=== PATIENT | male | born 1965 | race American Indian/Alaskan Native ===

== ENCOUNTER 2016-08-19 10:47 | Emergency (ER) | payer MEDICARE ==
--- NOTE | 2016-08-19 12:22 | Emergency Department Report ---
HPI - General Chief Complaint: Back Pain/Injury Time Seen by Provider: 08/19/16 11:48 - HPI HPI: Patient is a 51-year-old male presents to ED complaining of Left sided lower back pain x 4 days. Patient denies any injury to his back. He describes pain as throbbing, aching, localized to his lower left back. Patient rates pain 6/10 in intensity. Patient states pain is worsened with certain movement such as bending. Patient has full range of motion of the back. He denies rectal pain, testicular pain He denies fevers/chills/nausea/vomiting/abdominal pain/trauma or injury to the back/chest pain/shortness of breath/blurred vision or any other problems ED Past Medical Hx - Past Medical History Previous Medical History?: No - Surgical History Past Surgical History?: Yes Additional Surgical History: Left Leg. Jaw - Social History Smoking Status: Current Every Day Smoker Substance Use Type: Alcohol - Medications Home Medications: Home Medications Medication Instructions Recorded Confirmed Last Taken Type methylPREDNISolone [Medrol] 4 mg PO QAM #1 dosepack 12/18/15 Unknown Rx traMADol [Ultram] 50 mg PO Q6HR PRN #20 tablet 12/18/15 Unknown Rx Cyclobenzaprine [Flexeril] 10 mg PO QHS PRN #20 tablet 08/19/16 Unknown Rx Naproxen [Naprosyn] 500 mg PO BID #30 tablet 08/19/16 Unknown Rx predniSONE [Deltasone] 10 mg PO QDAY #4 tab 08/19/16 Unknown Rx ED Review of Systems ROS: Stated complaint: BACK PAIN Other details as noted in HPI Constitutional: denies: chills, fever Eyes: denies: eye pain, eye discharge, vision change ENT: denies: ear pain, throat pain Respiratory: denies: cough, shortness of breath, wheezing Cardiovascular: denies: chest pain, palpitations Endocrine: no symptoms reported Gastrointestinal: denies: abdominal pain, nausea, diarrhea Genitourinary: denies: urgency, dysuria Musculoskeletal: denies: back pain, joint swelling, arthralgia Skin: denies: rash, lesions Neurological: denies: headache, weakness, paresthesias Psychiatric: denies: anxiety, depression Hematological/Lymphatic: denies: easy bleeding, easy bruising Physical Exam - Physical Exam Vital Signs: Vital Signs 08/19/16 11:28 Temperature 98.7 F Pulse Rate 90 Respiratory 18 Rate Blood Pressure 118/74 O2 Sat by Pulse 99 Oximetry Physical Exam: GENERAL: Alert and oriented x3, no apparent distress, Normal Gait, atraumatic. HEAD: Head is normocephalic and a-traumatic. EYES: Extra ocular muscles are intact. Pupils are equal, round, and reactive to light and accommodation. NECK: Supple. Non edematous, No carotid bruits. No lymphadenopathy or thyromegaly. No C-spine tenderness LUNGS: Symetrical with respiration, No wheezing, no rales or crackles, CTAB. HEART: S1, S2 present, regular rate and rhythm without murmur, no rubs, no gallops. EXTREMITIES/MUSCULOSKELETAL: No cyanosis, clubbing, rash, lesions or edema. Full ROM bilaterally. UE/LE Pulses 2+ bilaterally. LE and UE 5+ strength bilaterally, straight leg raise positive to left. NEUROLOGIC: The patient is cooperative with no focal neurologic deficits. Cranial nerves II through XII are grossly intact. Normal speech. SKIN: Warm and dry, No lesions, No ulceration or induration present. ED Course Vital Signs 08/19/16 11:28 Temperature 98.7 F Pulse Rate 90 Respiratory 18 Rate Blood Pressure 118/74 O2 Sat by Pulse 99 Oximetry ED Medical Decision Making - Medical Decision Making 51-year-old male presents with lumbar radiculopathy. ED course: Patient is in no distress during ED stay during examination, normal exam he states he can wait that he gets home to take medication since he is driving home. Discussed with patient. Rest , heat therapy to his lower back to take medication as prescribed. Discussed the patient to follow up with primary care doctor/chiropractor/ neurology as all referred. Patient was alert and oriented 3 understands instructions given and states he will follow-up. Vital signs are normal patient is in no acute distress Critical care attestation.: If time is entered above; I have spent that time in minutes in the direct care of this critically ill patient, excluding procedure time. ED Disposition Clinical Impression: Lumbar radiculopathy Disposition: DISCHARGED TO HOME OR SELFCARE Is pt being admited?: No Does the pt Need Aspirin: No Condition: Stable Instructions: Low Back Strain (ED), Lumbar Radiculopathy (ED), Core Strengthening Exercises (GEN), Heat Pack Application (ED) Prescriptions: Cyclobenzaprine [Flexeril] 10 mg PO QHS PRN #20 tablet PRN Reason: Muscle Spasm Naproxen [Naprosyn] 500 mg PO BID #30 tablet predniSONE [Deltasone] 10 mg PO QDAY #4 tab Referrals: CHANDLER BROWN MD [Staff Physician] - 3-5 Days [facility] [Outside] - 3-5 Days [facility] [Outside] - 3-5 Days [facility] [Outside] - 3-5 Days Forms: Work/School Release Form Time of Disposition: 12:22
[2016-08-19 13:11] VITALS: BP 132/76
== END 2016-08-19 12:55 | disposition home or self-care (01) ==
LOC: ED 10:47
DX: M54.16 Radiculopathy, lumbar region (principal); F17.200 Nicotine dependence, unspecified, uncomplicated
CPT/HCPCS: 99282

== ENCOUNTER 2016-10-14 11:51 | Emergency (ER) | payer MEDICARE ==
[2016-10-14 12:17] LABS: Basophils % (Auto) 0.7 % (0.0-1.8); Eosinophils % (Auto) 2.3 % (0.0-4.3); Hematocrit 42.4 % (35.5-45.6); Hemoglobin 14.3 gm/dl (11.8-15.2); Mean Corpuscular HGB Conc 34 % (32-34); Mean Corpuscular Hemoglobin 32 pg (28-32); Mean Corpuscular Volume 95 fl (84-94); Platelet Count 316 K/mm3 (140-440); Red Blood Count 4.47 M/mm3 (3.65-5.03); Red Cell Distribution Width 13.9 % (13.2-15.2); White Blood Count 8.8 K/mm3 (4.5-11.0)
[2016-10-14 12:31] LABS: Anion Gap 17 mmol/L; BUN/Creatinine Ratio 11.42; Blood Urea Nitrogen 8 mg/dL (9-20); Carbon Dioxide 23 mmol/L (22-30); Chloride 98.1 mmol/L (98-107); Glucose 112 mg/dL (75-100); Potassium 4.1 mmol/L (3.6-5.0); Sodium 134 mmol/L (137-145)
--- NOTE | 2016-10-14 12:58 | Ultrasound Report ---
ULTRASOUND TESTICULAR DOPPLER COMPLETE History: Right testicular swelling. Technique: Trans-scrotal ultrasound with spectral doppler interrogation. Findings: The right epididymal tail is enlarged, heterogeneous and demonstrates increased blood flow on color Doppler interrogation consistent with acute epididymitis. There is a small to medium right hydrocele. The testes and left epididymis are within normal limits. Spectral waveforms demonstrate arterial flow to both testes. IMPRESSION: Findings consistent with right epididymitis.
[2016-10-14 13:58] VITALS: BP 125/73
[2016-10-14] MEDS ORDERED: MOTRIN PO ONE (13:59)
[2016-10-14] MEDS ORDERED: NORCO 5/325 PO ONE (13:59)
--- NOTE | 2016-10-14 14:00 | Emergency Department Report ---
HPI - General Chief Complaint: Urogenital-Male Time Seen by Provider: 10/14/16 12:48 - HPI HPI: Room 26 The patient is a 51-year-old male presenting with a chief complaint testicular pain. The patient states 4 days he's had a pulling pain in the right testicle. Patient states the pain is constant and associated with subjective fever. Patient denies dysuria states she is uncertain of his had hematuria. Patient denies penile discharge. The patient currently gives his pain a score of 5/10 Location: Right testicle Duration: 4 days Quality: "Pulling" Severity: 5/10 Modifying factors: [see above] Context: [see above] Mode of transportation: [not driving] ED Past Medical Hx - Past Medical History Previous Medical History?: No - Surgical History Past Surgical History?: Yes Additional Surgical History: Left Leg. Jaw - Family History Family history: no significant - Social History Smoking Status: Current Every Day Smoker (1 pack per day) Substance Use Type: Alcohol, Cocaine - Medications Home Medications: Home Medications Medication Instructions Recorded Confirmed Last Taken Type Ciprofloxacin HCl [Ciprofloxacin 500 mg PO BID #20 tablet 10/14/16 Unknown Rx TAB] HYDROcodone/APAP 5-325 [[place] 1 - 2 each PO Q6HR PRN #14 tablet 10/14/16 Unknown Rx 5/325] Ibuprofen [Motrin 800 MG tab] 800 mg PO Q8HR PRN #20 tablet 10/14/16 Unknown Rx ED Review of Systems ROS: Stated complaint: SWOLLEN TESTICLE R SIDE ONLY Other details as noted in HPI Comment: All other systems reviewed and negative Constitutional: diaphoresis Eyes: denies: eye pain, eye discharge, vision change ENT: denies: ear pain, throat pain Respiratory: denies: cough, shortness of breath, wheezing Cardiovascular: denies: chest pain, palpitations Endocrine: no symptoms reported Gastrointestinal: denies: abdominal pain, nausea, diarrhea Genitourinary: testicular pain. denies: dysuria, frequency, discharge Musculoskeletal: denies: back pain, joint swelling, arthralgia Skin: denies: rash, lesions Neurological: denies: headache, weakness, paresthesias Psychiatric: denies: anxiety, depression Hematological/Lymphatic: denies: easy bleeding, easy bruising Physical Exam - Physical Exam Vital Signs: Vital Signs 10/14/16 10/14/16 11:56 13:50 Temperature 99.0 F Pulse Rate 91 H Respiratory 20 18 Rate Blood Pressure 137/86 O2 Sat by Pulse 100 100 Oximetry Physical Exam: GENERAL: The patient is well-developed well-nourished male lying on stretcher not appearing to be in acute distress. [] HEENT: Normocephalic. Atraumatic. Extraocular motions are intact. Patient has moist mucous membranes. NECK: Supple. Trachea midline CHEST/LUNGS: There is no respiratory distress noted. HEART/CARDIOVASCULAR: Regular. There is no tachycardia. ABDOMEN: Abdomen is soft, nontender. Patient has normal bowel sounds. There is no abdominal distention. SKIN: There is no rash. There is no edema. There is no diaphoresis. NEURO: The patient is awake, alert, and oriented. The patient is cooperative. The patient has normal speech MUSCULOSKELETAL: There is no evidence of acute injury. GENITOURINARY: Tenderness and swelling of the right testicle. ED Course Vital Signs 10/14/16 10/14/16 11:56 13:50 Temperature 99.0 F Pulse Rate 91 H Respiratory 20 18 Rate Blood Pressure 137/86 O2 Sat by Pulse 100 100 Oximetry ED Medical Decision Making - Lab Data Result diagrams: 10/14/16 12:03 10/14/16 12:03 Laboratory Tests 10/14/16 10/14/16 10/14/16 12:03 12:03 14:46 WBC 8.8 RBC 4.47 Hgb 14.3 Hct 42.4 MCV 95 H MCH 32 MCHC 34 RDW 13.9 Plt Count 316 Lymph % (Auto) 19.3 [place] % (Auto) 13.1 H Eos % (Auto) 2.3 Baso % (Auto) 0.7 Lymph # 1.7 [place] # 1.1 H Eos # 0.2 Baso # 0.1 Seg Neutrophils % 64.6 Seg Neutrophils # 5.7 Sodium 134 L Potassium 4.1 Chloride 98.1 Carbon Dioxide 23 Anion Gap 17 BUN 8 L Creatinine 0.7 L Estimated GFR > 60 BUN/Creatinine Ratio 11.42 Glucose 112 H Calcium 9.0 Urine Color Yellow Urine Turbidity Clear Urine pH 6.0 Ur Specific [place] 1.008 Urine Protein <15 mg/dl Urine Glucose (UA) Neg Urine Ketones Neg Urine Blood Mod Urine Nitrite Neg Urine Bilirubin Neg Urine Urobilinogen < 2.0 Ur Leukocyte Esterase Sm Urine WBC (Auto) 12.0 H Urine RBC (Auto) 1.0 U Epithel Cells (Auto) 1.0 Urine Mucus Few - Radiology Data Radiology results: report reviewed (testicular ultrasound), image reviewed ( testicular ultrasound) Testicular ultrasound (read by radiologist)-findings consistent with right epididymitis. Spectral waveforms demonstrate arterial flow to both testes. - Differential Diagnosis epididymitis, testicular torsion, UTI Critical care attestation.: If time is entered above; I have spent that time in minutes in the direct care of this critically ill patient, excluding procedure time. ED Disposition Clinical Impression: Right epididymitis, Right testicular pain, UTI (urinary tract infection) Disposition: TO HOME OR SELFCARE Is pt being admited?: No Does the pt Need Aspirin: No Condition: Stable Instructions: Epididymitis (ED) Additional Instructions: Return to the emergency department immediately should you develop worsening symptoms, fever, inability to tolerate food or liquid or any other concerns. Prescriptions: Ciprofloxacin HCl [Ciprofloxacin TAB] 500 mg PO BID #20 tablet HYDROcodone/APAP 5-325 [[place] 5/325] 1 - 2 each PO Q6HR PRN #14 tablet PRN Reason: Pain Ibuprofen [Motrin 800 MG tab] 800 mg PO Q8HR PRN #20 tablet PRN Reason: Pain Referrals: MARIANA RUCKER MD [Staff Physician] - 3-5 Days (Dr. Rucker is a urologist. Please follow up with him for further evaluation of your epididymitis and enlarged prostate) MICHAEL TARANGO MD [Staff Physician] - 3-5 Days (Dr. Tarango is a primary physician. Please follow up with him to be established as a patient) Forms: STI Treatment and Prevention Time of Disposition: 15:39
[2016-10-14 15:34] LABS: Bilirubin,Urine NEG (Negative); Blood,Urine MOD (Negative); Ketones,Urine NEG (Negative); Leukocyte Esterase,Urine SM (Negative); Mucus,Urine FEW /HPF; Nitrite,Urine NEG (Negative); Protein,Urine <15 mg/dL mg/dL (Negative); Urobilinogen,Urine < 2.0 mg/dL (<2.0)
[2016-10-14] MEDS ORDERED: XYLOCAINE 1% MPF 5 mL INFILTRATI ONE (15:37)
[2016-10-14] MEDS ORDERED: ROCEPHIN IM ONE (15:37)
== END 2016-10-14 16:02 | disposition home or self-care (01) ==
LOC: ED 11:51
DX: N39.0 Urinary tract infection, site not specified (principal); N45.1 Epididymitis; F17.200 Nicotine dependence, unspecified, uncomplicated; F14.10 Cocaine abuse, uncomplicated
CPT/HCPCS: 36415; 80048; 81001; 85025; 87086; 93975; 96372; 99284; J0696

== ENCOUNTER 2016-12-01 16:09 | Emergency (ER) | payer MEDICARE ==
[2016-12-01] MEDS ORDERED: ROCEPHIN ONE (18:02)
[2016-12-01] MEDS ORDERED: XYLOCAINE 1% MPF 5 mL ONE (18:03)
[2016-12-01] MEDS ORDERED: TRIPLE ANTIBIOTIC TP ONE (18:18)
[2016-12-01] MEDS ORDERED: NORCO 5/325 ONE (18:31)
[2016-12-02 12:49] LABS: Hematocrit 41.8 % (35.5-45.6); Mean Corpuscular HGB Conc 34 % (32-34); Mean Corpuscular Hemoglobin 32 pg (28-32); Mean Corpuscular Volume 97 fl (84-94); Red Blood Count 4.32 M/mm3 (3.65-5.03); White Blood Count 8.5 K/mm3 (4.5-11.0)
[2016-12-02 12:50] LABS: Basophils % (Auto) 0.7 % (0.0-1.8); Eosinophils % (Auto) 3.5 % (0.0-4.3); Platelet Count 308 K/mm3 (140-440)
[2016-12-02 12:52] LABS: Bilirubin,Urine Negative (Negative); Ketones,Urine Negative (Negative)
[2016-12-02 12:53] LABS: Blood,Urine Large (Negative); Nitrite,Urine Positive (Negative); Urobilinogen,Urine < 2.0 mg/dL (<2.0)
[2016-12-02 12:54] LABS: Bacteria,Urine 2+ /HPF (Negative); Leukocyte Esterase,Urine TR (Negative); Mucus,Urine Few /HPF
[2016-12-02 12:55] LABS: Anion Gap 20 mmol/L; Blood Urea Nitrogen 12 mg/dL (9-20); Calcium 9.3 mg/dL (8.4-10.2); Carbon Dioxide 23 mmol/L (22-30); Chloride 97.8 mmol/L (98-107); Glucose 99 mg/dL (75-100); Potassium 4.8 mmol/L (3.6-5.0); Sodium 136 mmol/L (137-145)
== END 2016-12-01 17:00 | disposition left against medical advice (07) ==
LOC: ED 16:09
DX: Z43.6 Encounter for attention to other artificial openings of urinary tract (principal); Z53.21 Procedure and treatment not carried out due to patient leaving prior to being seen by health care provider
CPT/HCPCS: 36415; 80048; 81001; 82140; 85025; 87040; 87086; J0696; A6250

== ENCOUNTER 2017-02-17 09:09 | Outpatient (CLI) | payer MEDICARE ==
--- NOTE | 2017-02-17 10:10 | Cat Scan Report ---
CT of the abdomen and pelvis without contrast. History: Microscopic hematuria. Findings: The liver, spleen, and pancreas are normal. The kidneys are normal in size and configuration with no evidence of mass or hydronephrosis. No renal calcifications are seen. There are no ureteral calcifications or obstruction. The partially filled urinary bladder is unremarkable. There no pelvic masses or abnormal fluid collections. No mesenteric inflammation is seen. There is no radiographic evidence of appendicitis. Impression: Negative study.
== END 2017-02-17 09:10 | disposition home or self-care (01) ==
LOC: CT 09:09
PROVIDERS: ATTEND Urology
DX: R31.29 Other microscopic hematuria (principal)
CPT/HCPCS: 74176

== ENCOUNTER 2017-05-15 09:28 | Emergency (ER) | payer MEDICARE ==
[2017-05-15 09:58] VITALS: BP 114/75
--- NOTE | 2017-05-15 10:57 | XRay Report ---
LEFT SHOULDER RADIOGRAPHS INDICATION: Shoulder pain, status post fall. COMPARISON: None similar. FINDINGS: Frontal and Y views of the left shoulder, 3 projections demonstrate normal humeral head contour, well positioned against the glenoid. Intact acromioclavicular joint with slight degenerative changes. Preserved scapular contour. Normal visualized soft tissues, left ribs and lung. CONCLUSION: No acute left shoulder radiographic abnormality, as described. Thank you for the opportunity to participate in this patient's care.
[2017-05-15] MEDS ORDERED: TORADOL IM ONE (10:58)
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
== END 2017-05-15 11:23 | disposition home or self-care (01) ==
LOC: ED 09:28
DX: S46.912A Strain of unspecified muscle, fascia and tendon at shoulder and upper arm level, left arm, initial encounter (principal); F17.200 Nicotine dependence, unspecified, uncomplicated; W22.8XXA Striking against or struck by other objects, initial encounter; Y93.89 Activity, other specified; Y92.89 Other specified places as the place of occurrence of the external cause; Y99.8 Other external cause status
CPT/HCPCS: 73030; 96372; 99283; J1885